=== PATIENT | male | born 1965 | race Caucasian/White ===

== ENCOUNTER 2019-06-21 08:33 | Emergency (ER) | payer MEDICAID ==
[~2019-06-21] VITALS: Ht 195.6 cm; Wt 118.2 kg
[2019-06-21 08:41] VITALS: BP 136/71; Ht 195.6 cm; Wt 118.2 kg
[2019-06-21] MEDS ORDERED: CARDIZEM60 MG PO (08:42)
[2019-06-21] MEDS ORDERED: LOPRESSOR25 MG PO (08:42)
[2019-06-21] MEDS ORDERED: CYCLOBENZAPRINE10 MG PO (08:42)
[2019-06-21] MEDS ORDERED: LIPITOR20 MG PO (08:43)
[2019-06-21] MEDS ORDERED: LIPOFEN50 MG PO (08:43)
[2019-06-21] MEDS ORDERED: BAYER CHEWABLE81 MG PO (08:43)
[2019-06-21] MEDS ORDERED: HYDROCODON-ACE1 EAC2 PO (08:43)
[2019-06-21] MEDS ORDERED: CLEOCIN HCL300 MG PO (08:58)
== END 2019-06-21 09:15 | disposition home or self-care (01) ==
LOC: D.ER 08:33
DX: K02.9 Dental caries, unspecified (principal); K04.7 Periapical abscess without sinus; I10 Essential (primary) hypertension; Z72.0 Tobacco use

== ENCOUNTER 2019-07-15 16:14 | Emergency (ER) | payer MEDICAID ==
[~2019-07-15] VITALS: Ht 195.6 cm; Wt 113.6 kg
[~2019-07-15 16:14] MED LIST: BAYER CHEWABLE81 MG PO; CARDIZEM60 MG PO; CLEOCIN HCL300 MG PO; CYCLOBENZAPRINE10 MG PO; HYDROCODON-ACE1 EAC2 PO; LIPITOR20 MG PO; LIPOFEN50 MG PO; LOPRESSOR25 MG PO
[2019-07-15 16:52] VITALS: Ht 195.6 cm; Wt 113.6 kg
[2019-07-15 17:40] LABS: BASOPHILS 0.3 % (0-2); EOSINOPHILS 1.3 % (0-7); HEMOGLOBIN 15.4 g/dL (13.5-17.5); IMMATURE GRANULOCYTES 0.3 % (0-5); LYMPHOCYTES 21.8 % (15-50); MCH 31.3 pg (26.0-34.0); MCHC 34.2 g/dL (31.0-37.0); MCV 91.5 fL (80.0-100.0); MEAN PLATELET VOLUME 9.5 fL (7.4-10.4); MONOCYTES 6.6 % (2-11); NEUTROPHILS 69.7 % (40-80); PLATELET COUNT 374 10x3/uL (130-400); RBC 4.92 10x6/uL (4.20-6.10); RDW 12.7 % (11.5-14.5)
[2019-07-15 18:14] LABS: ANION GAP 15.2 mmol/L (8-16); CALCIUM 9.3 mg/dL (8.5-10.1); CREATININE - SERUM 1.1 mg/dL (0.6-1.3); POTASSIUM - SERUM 4.2 mmol/L (3.5-5.1)
[2019-07-15 18:20] LABS: ALBUMIN 3.8 g/dL (3.4-5.0); BILIRUBIN - TOTAL 0.37 mg/dL (0.2-1.3); PROTEIN - SERUM 7.6 g/dL (6.4-8.2)
[2019-07-15] MEDS ORDERED: AUGMENTIN 875-11 TAB PO (20:15)
[2019-07-15] MEDS ORDERED: MUCINEX600 MG PO (20:15)
[2019-07-15 21:20] VITALS: BP 148/85
== END 2019-07-15 21:19 | disposition home or self-care (01) ==
LOC: D.ER 16:14
PROVIDERS: Family Medicine
DX: J06.9 Acute upper respiratory infection, unspecified (principal); Z72.0 Tobacco use; J40 Bronchitis, not specified as acute or chronic; J44.9 Chronic obstructive pulmonary disease, unspecified; I47.1 Supraventricular tachycardia; M54.9 Dorsalgia, unspecified

== ENCOUNTER 2019-11-28 16:17 | Emergency (ER) | payer MEDICAID ==
[~2019-11-28] VITALS: Ht 195.6 cm; Wt 113.6 kg
[~2019-11-28 16:17] MED LIST changes: +AUGMENTIN 875-11 TAB PO; +MUCINEX600 MG PO
[2019-11-28 16:28] VITALS: Ht 195.6 cm; Wt 113.6 kg
[2019-11-28 17:10] LABS: HEMATOCRIT 43.9 % (42.0-54.0); HEMOGLOBIN 14.8 g/dL (13.5-17.5); LYMPHOCYTES 31.6 % (15-50); MCH 30.7 pg (26.0-34.0); MCHC 33.7 g/dL (31.0-37.0); MCV 91.1 fL (80.0-100.0); MEAN PLATELET VOLUME 9.3 fL (7.4-10.4); NEUTROPHILS 61.2 % (40-80); PLATELET COUNT 370 10x3/uL (130-400); RBC 4.82 10x6/uL (4.20-6.10); RDW 13.3 % (11.5-14.5); WBC 6.6 10x3/uL (4.8-10.8)
[2019-11-28 17:16] LABS: ANION GAP 11.7 mmol/L (8-16); CARBON DIOXIDE 26.8 mmol/L (21.0-32.0); CREATININE - SERUM 1.1 mg/dL (0.6-1.3); POTASSIUM - SERUM 3.5 mmol/L (3.5-5.1)
[2019-11-28 17:22] LABS: ALBUMIN 3.8 g/dL (3.4-5.0); BILIRUBIN - TOTAL 0.3 mg/dL (0.2-1.3); PROTEIN - SERUM 7.4 g/dL (6.4-8.2)
[2019-11-28 18:03] VITALS: BP 142/74
== END 2019-11-28 18:04 | disposition home or self-care (01) ==
LOC: D.ER 16:17
PROVIDERS: Family Medicine
DX: K59.00 Constipation, unspecified (principal); M79.651 Pain in right thigh; R11.0 Nausea

== ENCOUNTER 2020-10-17 21:56 | Emergency (ER) | payer BC ==
[~2020-10-17] VITALS: Ht 195.6 cm; Wt 115.5 kg
[2020-10-17 22:01] VITALS: Ht 195.6 cm; Wt 115.5 kg
[2020-10-17] MEDS ORDERED: OSTEO BI-FLEX1 EAC1 PO (22:04)
[2020-10-17] MEDS ORDERED: VITAMIN B-122500 MCG PO (22:04)
[2020-10-17] MEDS ORDERED: HCTZ25 MG PO (22:05)
[2020-10-17] MEDS ORDERED: OMEPRAZOLE20 M1 PO (22:06)
[2020-10-17] MEDS ORDERED: ORAL ANALGESIC9 GM TOPICAL (22:20)
[2020-10-17] MEDS ORDERED: AUGMENTIN 875-11 TAB PO (22:20)
[2020-10-17 23:10] VITALS: BP 146/87
== END 2020-10-17 23:10 | disposition home or self-care (01) ==
LOC: D.ER 21:56
DX: K08.89 Other specified disorders of teeth and supporting structures (principal); K05.10 Chronic gingivitis, plaque induced; Z72.0 Tobacco use